=== PATIENT | female | born 1995 | race Caucasian/White ===

== ENCOUNTER 2021-08-29 16:43 | Outpatient (RCR) | payer OTHER, SELFPAY ==
[2021-08-29 18:38] VITALS: BP 97/61; PULSE 103
== END 2021-11-17 14:13 | disposition home or self-care (01) ==
LOC: ANHOBOP 16:43
PROVIDERS: Visit Provider Obstetrics & Gynecology
DX: O36.5930 Maternal care for other known or suspected poor fetal growth, third trimester, not applicable or unspecified (principal); Z3A.33 33 weeks gestation of pregnancy
CPT/HCPCS: 59025

== ENCOUNTER 2021-08-30 16:30 | Outpatient (RCR) | payer OTHER, SELFPAY ==
[2021-09-01] MEDS: RHO(D) IMMUNE GLOBULIN 300 MCG/2 ML SYRINGE IM (15:42)
== END 2021-11-28 23:59 | disposition home or self-care (01) ==
LOC: ANHLAB 16:30
PROVIDERS: Visit Provider Obstetrics & Gynecology
DX: Z29.13 Encounter for prophylactic Rho(D) immune globulin (principal); O36.0190 Maternal care for anti-D [Rh] antibodies, unspecified trimester, not applicable or unspecified; Z3A.00 Weeks of gestation of pregnancy not specified
CPT/HCPCS: 36415; 85461; 90384; 96372; J2790

== ENCOUNTER 2021-10-09 22:59 | Observation (INO) | payer OTHER, SELFPAY ==
[2021-10-10 02:01] VITALS: BMI 29.0
--- NOTE | 2021-10-10 02:01 | OBADM ---
This patient, Sayra Quintana, admitted to the OB room Labor/Delivery/Recovery 105 for observation. Patient/family oriented to hospital policies and general routines including ID bracelet, bed and alarms, visiting hours, pain management, procedures, bathroom and other care routines, personal items, smoking policy, room service/diet, and visiting hours. Patient/Family are encouraged to report perceived risks to care and to ask questions if they do not understand what they are told or what they should do.
--- NOTE | 2021-10-12 12:26 | P.PNOB_ITS ---
OB - Triage/Final Diagnosis Visit Information Date of evaluation: 10/09/21 Reason for evaluation: threatened labor Comments/Additional reasons for admission: I have assessed the risk for this patient, Sayra Quintana, and determined that she would benefit from o bservation care.
== END 2021-10-10 02:10 | disposition home or self-care (01) ==
PROVIDERS: Admitting Provider Obstetrics & Gynecology; Visit Provider Obstetrics & Gynecology
DX: O47.1 False labor at or after 37 completed weeks of gestation (principal); Z3A.39 39 weeks gestation of pregnancy
CPT/HCPCS: 84112; G0378; G0379

== ENCOUNTER 2021-10-12 06:00 | Inpatient (IN) | payer OTHER, SELFPAY ==
[2021-10-12] VITALS (141 sets, daily range): BP systolic 59–138; BP diastolic 41–112; PULSE 25–233; RESP 16–18; TEMP 36.2–37.1; O2SAT 70–100; BMI 29.0
[2021-10-12] MEDS: LACTATED RINGERS 1,000 ML 125 ML IV CONT ×2 (06:45→08:58)
[2021-10-12] MEDS: OXYTOCIN 30 UNITS/NS 500 ML 30 UNITS/500 ML BAG IV CONT (06:45)
[2021-10-12 06:49] LABS: Basophils Percent Auto 0.3 % (0.2-1.2); Eosinophils Percent Auto 0.5 % (0-4.4); Hematocrit 34.4 % (37.0-47.0); Immature Granulocyte Absolute 0.02 K/mm3 (0.00-0.031); Immature Granulocyte Percent A 0.3 % (0-0.5); Lymphocytes Absolute Auto 3.04 K/mm3 (0.9-3.2); Lymphocytes Percent Auto 38.5 % (18.3-44.2); Mean Corpuscular Hemoglobin 26.5 pg (26-34); Mean Corpuscular Volume 82.9 fl (80-100); Mean Platelet Volume 12.1 fl (7.4-10.4); Monocytes Absolute Auto 0.3 K/mm3 (0.1-0.6); Monocytes Percent Auto 4.2 % (2.6-8.5); Neutrophils Absolute Auto 4.5 K/mm3 (1.3-6.7); Neutrophils Percent Auto 56.2 % (45.5-73.1); Platelet Count Result 195 k/mm3 (150-375); Red Blood Count 4.15 M/mm3 (4.2-5.4); Red Cell Distribution Width 15.3 % (11.5-14.5); White Blood Count 7.9 K/mm3 (4.5-10.0)
--- NOTE | 2021-10-12 06:53 | LDADM ---
This patient, Sayra Quintana, was admitted to Labor/Delivery/Recovery 106 on 10/12/21 at 06:00. Plans for labor, pain management and were discussed with patient. Patient/family oriented to hospital policies and general routines including ID bracelet, bed and alarms, visiting hours, pain management, procedures, bathroom and other care routines, personal items, smoking policy, room service/diet and guest tray routines, infant security routines, and visiting hours. Patient/Family are encouraged to report perceived risks to care and to ask questions if they do not understand what they are told or what they should do. See OBIX for further documentation.
--- NOTE | 2021-10-12 08:34 | WPDANESEPPF ---
Anes - Initial Pre Proc Eval Date/Time: 10/12/21 08:34 Surgeon: Juan Soria MD Pre Op Diagnosis: iol Patient Data Age: 26 Gender: F Height: 1.57 m Weight: 72 kg Last Vital Signs Temp 36.5 C 10/12/21 07:00 Pulse 96 10/12/21 08:33 BP 90/61 L 10/12/21 08:33 Pulse Ox 98 10/12/21 08:33 Allergies Allergy/AdvReac Type Severity Reaction Status Date / Time No Known Allergies Allergy Verified 09/20/21 14:41 Home Medications Medication Instructions Recorded Confirmed Type ferrous sulfate 325 mg PO DAILY 08/29/21 10/12/21 History vit-ferrous sulfat-FA 1 tablet PO DAILY 08/29/21 10/12/21 History fluoxetine 40 mg PO DAILY 10/12/21 10/12/21 History Laboratory Tests 10/12/21 10/12/21 10/12/21 06:35 06:35 06:35 WBC 7.9 K/mm3 K/mm3 (4.5-10.0) RBC 4.15 M/mm3 L M/mm3 (4.2-5.4) Hgb 11.0 g/dL L g/dL (12.0-15.0) Hct 34.4 % L % (37.0-47.0) MCV 82.9 fl fl (80-100) MCH 26.5 pg pg (26-34) MCHC 32.0 g/dl g/dl (32-36) RDW 15.3 % H % (11.5-14.5) Plt Count 195 k/mm3 k/mm3 (150-375) MPV 12.1 fl H fl (7.4-10.4) Immature Gran % (Auto) 0.3 % % (0-0.5) Neut % (Auto) 56.2 % % (45.5-73.1) Lymph % (Auto) 38.5 % % (18.3-44.2) [place] % (Auto) 4.2 % % (2.6-8.5) Eos % (Auto) 0.5 % % (0-4.4) Baso % (Auto) 0.3 % % (0.2-1.2) Lymph # (Auto) 3.04 K/mm3 K/mm3 (0.9-3.2) [place] # (Auto) 0.3 K/mm3 K/mm3 (0.1-0.6) Eos # (Auto) 0.0 K/mm3 K/mm3 (0-0.3) Baso # (Auto) 0.0 K/mm3 K/mm3 (0.0-0.1) Abs Immat Gran (auto) 0.02 K/mm3 K/mm3 (0.00-0.031) Absolute Neuts (auto) 4.5 K/mm3 K/mm3 (1.3-6.7) Absolute Nucleated RBC 0.0 K/mm3 K/mm3 (0.0-0.012) Nucleated RBC % 0.0 % % (0.0-0.2) RPR Pending Blood Type O Negative Antibody Screen Pending Patient hx anesthesia problems: none Family hx anesthesia problems: none Results Review: All pre-operative results and documents have been reviewed as part of the pre-operative evaluation. PMFSH Past Medical History Medical History Anxiety Family History Family History Father Obesity Mother Obesity Social History Social History Smoking status: Never smoker Substance use: never Spiritual care concerns: No Anes - Eval Final PreProcedure Day of Procedure 10/12/21 08:34 Patient weight: overweight Heart: regular rate and rhythm Lungs: clear to auscultation Neurological: alert and oriented ASA classification: II Emergent: no Anesthetic plan: proceed Anesthesia type and monitoring: regional epidural and standard monitoring Results Review: All pre-operative results and documents have been reviewed as part of the pre-operative evaluation. Informed Consent: The patient's anesthetic plan and its attendant risks and benefits were discussed with the patient/family/POA. Questions were solicited and answers provided to the satisfaction of the patient/family/POA.
--- NOTE | 2021-10-12 15:48 | PM.OBPRVD ---
OB - Delivery Note Procedure Delivery date: 10/12/21 Procedure: Induction of labor with Induction method: AROM and per pitocin protocol Delivery monitor: external FHT, external uterine and internal uterine Route of delivery: Laceration Description: None Specimen: Yes (cord blood) Quantitative Blood Loss (ml): 220 Anesthesia type: Epidural Disposition: PACU Complications: None Narrative: 26 y/o at 39 3/7 weeks gestation who presented to the hospital for induction of labor. Oxytocin was administered intravenously. Amniotomy was performed with return of clear fluid. She received an epidural for pain control. Her labor progressed and her cervix dilated completely. She pushed with good effort and delivered the 's head to the perineum, followed by the body. The nose and mouth were bulb suctioned. After a delay, the cord was clamped and cut. The was handed off the field. Cord blood was collected. The placenta delivered spontaneously and was grossly normal in appearance. The usual 3 vessel cord was noted. No lacerations were sustained. Needle and instrument counts were correct. The patient was taken to recovery room in stable condition. The went to the nursery in stable condition. I was present and scrubbed for the entire delivery. [place] Baby Date of : 10/12/21 Time of : 15:39 Weeks of gestation at delivery: 39 Infant gender: Female Weight (pounds): 7 Weight (ounces): 1 presentation: vertex position: Left Occiput Anterior Placenta delivery description: Spontaneous and Normal Configuration cord vessel description: 3 Vessels and Delayed Cord Clamping score one minute: 9 score five minutes: 9
[2021-10-12] MEDS: OXYTOCIN 30 UNITS/NS 500 ML 30 UNITS/500 ML BAG 125 UNITS IV CONT (16:15)
--- NOTE | 2021-10-12 16:48 | PM.OBDSVD ---
DS: Admitting Diagnosis Discharge Date 10/13/21 Admitting Diagnosis IUP at 39 3/7 weeks Favorable cervix DS: Discharge Diagnosis Discharge Diagnosis (1) (normal spontaneous vaginal delivery): Code(s): O80 - Encounter for full-term uncomplicated delivery Status: Acute OB - DS: Summary OB Procedures : None OB Procedures Intrapartum: Spontaneous Vag Delivery OB Procedures: : None DS: Data Data Completed and Pending Labs on day of discharge: Labs from last 24 hours 10/12/21 10/12/21 10/12/21 06:35 06:35 06:35 WBC 7.9 RBC 4.15 L Hgb 11.0 L Hct 34.4 L MCV 82.9 MCH 26.5 MCHC 32.0 RDW 15.3 H Plt Count 195 MPV 12.1 H Immature Gran % (Auto) 0.3 Neut % (Auto) 56.2 Lymph % (Auto) 38.5 [place] % (Auto) 4.2 Eos % (Auto) 0.5 Baso % (Auto) 0.3 Lymph # (Auto) 3.04 [place] # (Auto) 0.3 Eos # (Auto) 0.0 Baso # (Auto) 0.0 Abs Immat Gran (auto) 0.02 Absolute Neuts (auto) 4.5 Absolute Nucleated RBC 0.0 Nucleated RBC % 0.0 RPR Pending Blood Type O Negative Antibody Screen Positive Antibody Identification Inconclusive Antigen Identification Cancelled ARIA, IgG Interpret Not Performed ARIA, Poly Interpret Negative ARIA, Complement Interp Not Performed Discharge Plan Discharge Attending physician on discharge: Juan Soria Consulting providers: Lencho Figueroa Discharging Clinician: Juan Soria Patient Disposition: Home, Self-Care Activity: pelvic rest Diet: regular Discharge Instructions: Education: Mom and Baby Guide Given to: Mother Follow-Up: Call your delivering provider's office for an appointment to be seen in: 6 Weeks [facility]. Appointment Date/Time: October 14, 2021 at 11:00 am What to expect at your follow-up visit: Blood Pressure Check Call [phone] if you are unable to keep your appointment time. BREAST CARE: * Wear a snug supportive bra. * For engorgement discomfort: Bottle Feeding: * May apply ice packs PERINEAL CARE: * Until bleeding stops, use your micky bottle after urinating * Change your pad frequently throughout the day * You may take sitz baths several times a day (fill your bathtub with warm water and soak for 20 minutes.) Do NOT bathe in the water * No tub baths until seen by your physician - You may shower ACTIVITY: * Rest as much as possible. * Do not exercise or lift anything heavier than your baby (such as laundry or other children.) * Avoid stairs or driving as much as possible. * Do not put anything into the vagina. No douching, tampons, or sexual activity until seen by physician. NOTIFY PHYSICIAN IF YOU HAVE ANY QUESTIONS OR IF ANY OF THE FOLLOWING SYMPTOMS OCCUR: * If your perineum becomes red, swollen, or more painful than what you have experienced in the hospital. * If your vaginal bleeding becomes foul smelling. * If your vaginal bleeding becomes more heavy than a period or if your bleeding changes from pink to bright red. However, you may pass an occasional walnut-sized clot once or twice for the first week . * If you experience a sharp, shooting pain in you calves. * If you discover a hard, reddened area on your breast or if you experience flu-like symptoms. * If you have a fever of 100.4 or greater DIET: * Eat regular, well-balanced meals. * Drink plenty of fluids daily. If , drink to thirst.Call or return if temperature above 100.4? F, increased abdominal pain, increased vaginal bleeding or any new problems. Stand Alone Forms: General Discharge Information Follow-up/Referrals: Juan Soria MD [Physician] - 6 Weeks Discharge Medications: New ibuprofen 600 mg tablet 600 mg PO Q6H PRN (Reason: cramps) Qty: 30 RF: 0 Continued vit-ferrous sulfat-F
[2021-10-12] MEDS: WITCH HAZEL 40 PADS 1 PAD TOPICAL (18:13)
--- NOTE | 2021-10-12 18:32 | PC.NURSE ---
Patient transferred to post room #281 via wheelchair @0601. Support person present. Oriented to unit, room, information board, rooming in, admission packet and security measures. Patient verbalizes understanding.
[2021-10-12] MEDS: IBUPROFEN 600 MG TABLET PO (18:40)
[2021-10-13] MEDS: IBUPROFEN 600 MG TABLET PO ×3 (02:52→15:50)
[2021-10-13 03:08] VITALS: BP 99/64; PULSE 64; RESP 18; TEMP 36.1; O2SAT 100
[2021-10-13 05:27] LABS: Hematocrit 32.5 % (37.0-47.0); Hemoglobin 10.3 g/dL (12.0-15.0)
--- NOTE | 2021-10-13 07:00 | PC.NURSE ---
PT introductions made and plan of care discussed per post , pain management, bottle feeding, daily care activities and pending discharge to home. PT received such instructions per one to one discussion, mom baby care guide and demonstrations this shift. PT and fob both recipients of such instructions and no barriers to learning identified at this time. PT verbalized understanding of such care.
[2021-10-13 07:30] VITALS: BP 83/48; PULSE 80; RESP 16; TEMP 36.5; O2SAT 99
--- NOTE | 2021-10-13 09:04 | PM.OBPNVD ---
OB - PN: Subj Subjective Date/time seen: 10/13/21 09:04 Narrative: Pain OK. Would like to go home. OB - PN: Obj Data Labs CBC & Chem 7: 10/13/21 05:07 Labs: Laboratory Results - last 24 hr 10/12/21 10/13/21 10/13/21 06:35 05:07 05:07 Hgb 10.3 L Hct 32.5 L Blood Type O Negative O Negative Antibody Screen Positive Antibody Identification Inconclusive Antigen Identification Cancelled ARIA, IgG Interpret Not Performed ARIA, Poly Interpret Negative ARIA, Complement Interp Not Performed OB - PN A/P Plan Comments: A: PPD#1, doing well. P: Home to f/u 6 weeks. Exam Psych: Other: AVSS ABD soft, nontender, fundus firm EXT nontender
[2021-10-13 10:00] VITALS: PULSE 80; RESP 16; O2SAT 99
[2021-10-13] MEDS: FLUoxetine HCL 20 MG CAPSULE 40 MG PO (10:04)
[2021-10-13] MEDS: ACETAMINOPHEN 325 MG TABLET 650 MG PO ×2 (10:04→15:49)
[2021-10-13] MEDS: DOCUSATE SODIUM 100 MG CAPSULE PO ×2 (10:05→15:50)
--- NOTE | 2021-10-13 11:03 | WPDANLDPN2 ---
Anes-Prog Note L&D Date/Time: 10/13/21 11:03 Comfortable throughout: labor and delivery Neuraxial method: epidural Epidural/Spinal procedure site: clean & non-tender Neuro status: Neuro function grossly intact. Cardiovascular status: normal Respiratory status: normal Airway patency: baseline Mental status: baseline Post-Op hydration status: normal Vital Signs: Last Vital Signs Temp 36.5 C 10/13/21 07:30 Pulse 80 10/13/21 10:00 Resp 16 10/13/21 10:00 BP 83/48 L 10/13/21 07:30 Pulse Ox 99 10/13/21 10:00 Pain score (VAS): 0 I/O: Intake & Output 10/12/21 10/13/21 10/13/21 23:59 07:59 15:59 Intake Total 1000 Output Total 120 Balance 880 Post-procedural complaints: none Patient feedback: Patient satisfied with anesthetic care.
[2021-10-13 11:38] VITALS: BP 105/62; PULSE 88; RESP 18; TEMP 37.1; O2SAT 100
[2021-10-13 13:34] LABS: Rapid Plasma Reagin Non-Reactive (NonReactive)
[2021-10-13] MEDS: RHO(D) IMMUNE GLOBULIN 300 MCG/2 ML SYRINGE IM (15:47)
[2021-10-13] MEDS: TETANUS,DIPHTHERIA,AC PERTUSSIS ADULT (0.5 ML) BOOSTRIX IM (15:48)
--- NOTE | 2021-10-13 16:30 | PC.NURSE ---
PT received discharge instructions per protocol and verbalized understanding of such care.
--- NOTE | 2021-10-13 17:00 | PC.NURSE ---
PT discharged to home ambulatory accompanied by both baby and fob and taken to waiting car. follow up appts confirmed
[2021-10-14 10:54] VITALS: BP 98/62; PULSE 93; RESP 16; TEMP 37.2; O2SAT 99
== END 2021-10-13 17:00 | disposition home or self-care (01) | DRG 807 ==
LOC: ANHLDR 16:49 → ANHOB2 18:59
PROVIDERS: Admitting Provider Obstetrics & Gynecology; Visit Provider Obstetrics & Gynecology
DX: O36.8330 Maternal care for abnormalities of the fetal heart rate or rhythm, third trimester, not applicable or unspecified (principal); Z37.0 Single live birth; Z3A.39 39 weeks gestation of pregnancy
CPT/HCPCS: 36415; 84112; 85014; 85018; 85025; 85461; 86592; 86850; 86880; 86900; 86901; 86902; 90384; 90715; A9270; G0378; G0379; J2590; J2790; J2795; J7120